=== PATIENT | male | born 1965 | race Caucasian/White ===

== ENCOUNTER → 2020-04-05 15:58 | Outpatient (BNVA) | payer OTHER, SELFPAY | PROVIDERS: Family Provider Nurse Practitioner Family; Visit Provider Nurse Practitioner Family | DX: S52.502A Unspecified fracture of the lower end of left radius, initial encounter for closed fracture (principal); X58.XXXA Exposure to other specified factors, initial encounter | CPT/HCPCS: 73110 ==

== ENCOUNTER → 2020-06-29 16:45 | Outpatient (BNVA) | payer OTHER, SELFPAY | PROVIDERS: Family Provider Nurse Practitioner Family; Visit Provider Nurse Practitioner Family | DX: J30.9 Allergic rhinitis, unspecified (principal); Z12.5 Encounter for screening for malignant neoplasm of prostate; Z13.6 Encounter for screening for cardiovascular disorders | CPT/HCPCS: 80053; 80061; 85025; G0103 ==

== ENCOUNTER → 2020-12-16 11:32 | Outpatient (BNVA) | payer OTHER, SELFPAY | PROVIDERS: Family Provider Nurse Practitioner Family; Visit Provider Nurse Practitioner Family | DX: R53.83 Other fatigue (principal) | CPT/HCPCS: 80053; 82306; 82607; 83735; 84403; 84443; 85025 ==

== ENCOUNTER → 2021-01-17 14:48 | Outpatient (BNVA) | payer OTHER, SELFPAY | PROVIDERS: Family Provider Nurse Practitioner Family; Visit Provider Nurse Practitioner Family | DX: R05 Cough (principal) | CPT/HCPCS: 71046 ==

== ENCOUNTER → 2021-10-20 09:27 | Outpatient (BNVA) | payer OTHER, SELFPAY | PROVIDERS: Family Provider Nurse Practitioner Family; Visit Provider Nurse Practitioner Family | DX: Z20.822 Contact with and (suspected) exposure to COVID-19 (principal) | CPT/HCPCS: 87635 ==

== ENCOUNTER → 2021-11-25 09:55 | Outpatient (BNVA) | payer OTHER, SELFPAY | PROVIDERS: Family Provider Nurse Practitioner Family; Visit Provider Nurse Practitioner Family | DX: L03.114 Cellulitis of left upper limb (principal) | CPT/HCPCS: 73130 ==

== ENCOUNTER → 2021-12-06 17:00 | Outpatient (BNVA) | payer OTHER, SELFPAY | PROVIDERS: Family Provider Nurse Practitioner Family; Visit Provider Nurse Practitioner Family | DX: M79.642 Pain in left hand (principal); L03.114 Cellulitis of left upper limb | CPT/HCPCS: 80053; 84550; 85025; 85651; 86038; 86140; 86200; 86431 ==

== ENCOUNTER 2021-12-19 12:21 | Outpatient (CLI) | payer OTHER, SELFPAY ==
--- NOTE | 2021-12-19 13:00 | MR_ITS ---
WS: [id number] INDICATION: Thorn hand for several months. Cellulitis. TECHNIQUE: MRI of the LEFT hand without gadolinium enhancement. Coronal T1, coronal STIR, axial T2, a xial T1, sagittal T2, coronal 3-D FSPGR. FINDINGS: Diffuse dorsal soft tissue edema overlying the head of the 3rd metacarpal with fluid in the 3rd MTP joint. Edema within the 3rd metatarsal head. Diffuse surrounding soft tissue and synovial th ickening. Small amount of fluid along the dorsum of the 3rd metatarsal head measuring 9 x 10 mm. This does not appear drainable. Recommend correlation for infection. Edema within the 3rd metacarpal head may be reactive but osteomyelitis not excluded. Moderate degenerative changes involving the carpal bones. Metatarsals are otherwise normal in appeara nce. MR/MR hand LT wo con* [id number] IMPRESSION: 1. Subcutaneous edema with diffuse soft tissue and synovial thickening deep to the palpable marker involving the 3rd metacarpal head. 2. Diffuse surrounding synovial thickening at the 3rd metacarpal head with flu id extending into the MTP joint. Edema within the 3rd metacarpal head may be re active but suspicious for osteomyelitis. 3. Small septated fluid collection deep to the palpable marker at the metacarp al head measuring 9 x 10 mm does not appear drainable. Recommend correlation fo r infection and septic joint. 4. No other significant findings.
== END 2021-12-19 12:22 | disposition home or self-care (01) ==
PROVIDERS: PCP Family Medicine; Visit Provider Nurse Practitioner Family
DX: L03.114 Cellulitis of left upper limb (principal); R60.0 Localized edema
CPT/HCPCS: 73218

== ENCOUNTER → 2022-08-07 15:37 | Outpatient (BNVA) | payer OTHER, SELFPAY | PROVIDERS: PCP Family Medicine; Visit Provider Nurse Practitioner Family | DX: R11.0 Nausea (principal); E78.2 Mixed hyperlipidemia; R53.83 Other fatigue; E55.9 Vitamin D deficiency, unspecified; R11.10 Vomiting, unspecified; M79.10 Myalgia, unspecified site; J02.9 Acute pharyngitis, unspecified; R51.9 Headache, unspecified; J40 Bronchitis, not specified as acute or chronic; Z12.5 Encounter for screening for malignant neoplasm of prostate | CPT/HCPCS: 80053; 80061; 82306; 83721; 84402; 84403; 84443; G0103 ==

== ENCOUNTER → 2023-04-16 09:41 | Outpatient (BNVA) | payer OTHER, SELFPAY | PROVIDERS: PCP Family Medicine; Visit Provider Nurse Practitioner Family | DX: E78.2 Mixed hyperlipidemia (principal); S61.442A Puncture wound with foreign body of left hand, initial encounter; W60.XXXA Contact with nonvenomous plant thorns and spines and sharp leaves, initial encounter | CPT/HCPCS: 73130; 80053; 80061 ==

== ENCOUNTER → 2023-07-05 15:52 | Outpatient (BNVA) | payer OTHER, SELFPAY | PROVIDERS: PCP Family Medicine; Visit Provider Nurse Practitioner Family | DX: F41.1 Generalized anxiety disorder (principal); F43.0 Acute stress reaction; E78.2 Mixed hyperlipidemia; N52.9 Male erectile dysfunction, unspecified; F32.4 Major depressive disorder, single episode, in partial remission | CPT/HCPCS: 80053; 80061; 83721; 84402; 84403 ==

== ENCOUNTER 2023-08-24 10:13 | Outpatient (CLI) | payer OTHER, SELFPAY ==
[2023-08-24 10:47] LABS: Basophils % 1.1 %; Eosinophils # 0.1 10^3/uL (0.0-0.8); Eosinophils % 2.2 %; Hematocrit 45.8 % (37-53); Lymphocytes % 26.6 %; Mean Corpuscular HGB Conc 33.2 g/dL (30-55); Mean Corpuscular Hemoglobin 30.6 pg (27-33); Mean Corpuscular Volume 92.3 fl (82-101); Monocytes # 0.3 10^3/uL (0.2-0.9); Monocytes % 8.8 %; Neutrophils # 2.21 10^3/uL (1.8-7.7); Neutrophils % 60.8 %; Nucleated Red Blood Cells % 0 %; Platelet Count 167 10^3/cmm (157-399); Red Blood Count 4.96 10^6/uL (3.85-5.65); Red Cell Distribution Width 12.6 % (12.1-15.1); White Blood Count 3.64 10^3/uL (3.29-11.43)
[2023-08-24 11:13] LABS: Alanine Aminotransferase 23 U/L (0-41); Albumin Level 4.7 g/dL (3.5-5.2); Alkaline Phosphatase 74 U/L (40-130); Anion Gap 16.2 (5-19); Aspartate Amino Transferase 17 U/L (0-40); Blood Urea Nitrogen 12 mg/dL (8-23); Calcium 9.5 mg/dL (8.5-10.5); Carbon Dioxide 25 mmol/L (22-29); Chloride 103 mmol/L (98-107); Free T4 Free Thyroxine 0.98 ng/dL (0.82-1.77); Globulin 2.6 g/dL (1.3-4.6); Glomerular Filtration Rate 137.4 mL/min (90-130); Glucose 102 mg/dL (65-115); Osmolality Calculated 290 mOsm/kg (285-295); Potassium 4.2 mmol/L (3.5-5.1); Prostate Specific Antigen Scr 1.31 ng/mL (0-4); Sodium 140 mmol/L (136-145); T3 Free 3.4 PG/ML (2.0-4.4); Thyroid Stimulating Hormone 1.49 uIU/mL (0.27-4.20); Total Bilirubin 0.6 mg/dL (0.15-1.2); Total Protein 7.3 g/dL (6.6-8.7)
[2023-08-25 09:04] LABS: T4 Total 6.9 mcg/dL (4.9-10.5)
[2023-08-25 12:25] LABS: Sex Hormone Binding Globulin 38 nmol/L (22-77); T3 Total 136 ng/dL (76-181)
[2023-08-27 08:53] LABS: Thyroid Peroxidase Antobodies <1 IU/mL (<9)
[2023-08-28 11:04] LABS: Insulin ( Reference Lab Test) 13.8 uIU/mL
[2023-08-28 14:34] LABS: IGF1 LC/MS 89 ng/mL (41-279); Z Score (Male) -0.8 SD (-2.0 - +2.0)
[2023-08-31 18:51] LABS: Cortisol ,Free,LC/MS, S 0.51 mcg/dL
[2023-09-02 03:39] LABS: T3 Reverse LC/MS/MS 16 ng/dL (8-25)
[2023-09-02 07:45] LABS: Thyroglobulin Level 32.9 ng/mL
== END 2023-08-24 10:14 | disposition home or self-care (01) ==
LOC: LAB 10:14
PROVIDERS: PCP Nurse Practitioner Family; Visit Provider Nurse Practitioner Family
DX: N52.9 Male erectile dysfunction, unspecified (principal); R68.82 Decreased libido; F32.4 Major depressive disorder, single episode, in partial remission; Z13.29 Encounter for screening for other suspected endocrine disorder; Z12.5 Encounter for screening for malignant neoplasm of prostate; F41.1 Generalized anxiety disorder; F43.0 Acute stress reaction
CPT/HCPCS: 36415; 80053; 82530; 82670; 83525; 84270; 84305; 84432; 84436; 84439; 84443; 84480; 84481; 84482; 85025; 86376; 86800; G0103

== ENCOUNTER → 2023-09-17 09:54 | Outpatient (BNVA) | payer OTHER, SELFPAY | PROVIDERS: PCP Nurse Practitioner Family; Visit Provider Nurse Practitioner Family | DX: J32.0 Chronic maxillary sinusitis (principal); J01.00 Acute maxillary sinusitis, unspecified | CPT/HCPCS: 87486; 87581; 87633 ==

== ENCOUNTER 2023-10-04 13:15 | Emergency (ER) | payer OTHER, SELFPAY ==
--- NOTE | 2023-10-04 13:17 | XRR_ITS ---
PROCEDURE INFORMATION: Exam: XR Chest Exam date and time: 10/04/2023 3:04 PM Age: 58 years old Clinical indication: Cough TECHNIQUE: Imaging protocol: Radiologic exam of the chest. Views: 1 view. COMPARISON: CR XR chest 2V* [id number] 01/17/2021 2:52 PM FINDINGS: Lungs: Unremarkable. No consolidation. Pleural spaces: Unremarkable. No pleural effusion. No pneumothorax. Heart/Mediastinum: Unremarkable. No cardiomegaly. Bones/joints: Unremarkable. XR/XR chest 1V portable [id number] IMPRESSION: No acute findings.
[2023-10-04 14:07] VITALS: BP 124/84; PULSE 86; TEMP 36.6; O2SAT 96; BMI 29.6
--- NOTE | 2023-10-04 14:11 | ECG_ITS ---
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 Measurements Intervals [place] Rate: 89 P: 59 NE: 154 QRS: 52 QRSD: 88 T: 30 QT: 295 QTc: 359 Interpretive Statements SINUS RHYTHM POSSIBLE LEFT ATRIAL ENLARGEMENT [-0.1mV P-WAVE IN V1/V2] NONSPECIFIC T-WAVE ABNORMALITY No previous ECG available for comparison Electronically Signed On 10-04-2023 15:11:57 CAMERA PERSON by Joshua Wyatt M.D. [id number]
--- NOTE | 2023-10-04 15:29 | ED_ITS ---
HPI - SOB/Dyspnea 2 General: Chief Complaint: Shortness of Breath/Dyspnea Stated Complaint: sent from annalise navarro cough Time Seen by Provider: 10/04/23 15:25 History of Present Illness: HPI Narrative: 58-year-old male patient comes in today for persistent cough after COVID. Patient has been treated with cephalexin and then followed by a round of Levaquin with 20 mg of prednisone daily. Patient reports minimal to no improvement with medications. Patient does have an occasional cough. Patient appears nontoxic. Patient appears in no acute distress. Review of Systems 2 General: Reports: 10 or more systems reviewed and unremarkable except in HPI and below Resp: Reports: dyspnea and non-productive cough PFSH ED 2 PFSH: Medical History (Updated 10/04/23 @ 16:56 by NINA Mcfarlane) GERD (gastroesophageal reflux disease) Surgical History Hx of tonsillectomy Family History Other No pertinent family history Social History Smoking and tobacco/nicotine status: current every day tobacco/nicotine user smokeless tobacco Smokeless tobacco user: chewing tobacco Second hand smoke exposure: No Alcohol intake: never Substance/Drug Use: never Lives independently: Yes Marital status: service: No Current occupational status: employed Current gender identity: Male Special nikolay needs: No Agree to transfusion: Yes Physical Exam 2 Const: COMMON NORMALS: alert HENMT: COMMON NORMALS: normocephalic HEAD & SCALP: normocephalic Neck/C-Spine: COMMON NORMALS: no meningeal signs Resp: COMMON NORMALS: normal respiratory effort AUSCULTATION: wheezes Cardio: COMMON NORMALS: regular rate and regular rhythm RATE: regular rate RHYTHM: regular rhythm GI: COMMON NORMALS: Soft to palpation and non-tender PALPATION: Yes Soft to palpation Back/Pelvis: COMMON NORMALS: thoracic and lumbar spine normal to inspection Extremity: COMMON NORMALS: no pedal edema Neuro: SENSORIUM/ORIENTATION: Yes alert MENINGEAL SIGNS: Yes no meningeal signs Skin: COMMON NORMALS: turgor normal GENERAL SKIN EXAM: turgor normal Course 2 Vital Signs: Vital signs: Vital Signs Temperature 97.8 F 10/04/23 14:07 Pulse Rate 85 10/04/23 16:33 Respiratory Rate 18 10/04/23 16:31 Blood Pressure 123/81 10/04/23 15:35 Pulse Oximetry 95 10/04/23 16:31 Oxygen Delivery Me thod Room Air 10/04/23 16:31 MDM - SOB/Dyspnea Medical Decision Making Patient comes in today for persistent cough after COVID infection. Patient has been treated with cephalexin followed by a round of Levaquin and prednisone. Patient continues to have a persistent cough. On exam patient appears nontoxic. Patient speaks full sentences. Lungs have some inspiratory wheezes. Good air movement. Patient does have occasional cough. Differential diagnosis includes but not limited to asthma, COPD, postviral cough, pneumonia. Chest x-ray was normal. Believe the patient most likely has a postviral cough versus a reactive airway disease. Will start patient on steroids and albuterol inhaler. Patient recommended to follow-up with primary care for further instructions. Patient did request ivermectin or hydroxychloroquine because he believes that that would fix him up. I told him that the data does not support his claims and it would not be appropriate to prescribe for him. Patient stated understanding. Lab Data 10/04/23 15:30 10/04/23 15:30 Labs/Radiology: Radiology Impressions Chest X-Ray 10/04/23 13:17 IMPRESSION: No acute findings. Laboratory Results WBC 6.39 10^3/uL (3.29-11.43) 10/04/23 15:30 RBC 5.40 10^6/uL (3.85-5.65) 10/04/23 15:30 Hgb 16.90 g/dL (11.27-16.99) 10/04/23 15:30 Hct 51.5 % (37-53) 10/04/23 15:30 MCV 95.4 fl (82-101) 10/04/23 15:30 MCH 31.3 pg (27-33) 10/04/23 15:30 MCHC 32.8 g/dL (30-55) 10/04/23 15:30 RDW 14.0 % (12.1-15.1) 10/04/23 15:30 Plt Count 169 10^3/cmm (157-399) 10/04/23 15:30 MPV 11.3 fL (7.4-10.4) H 10/04/23 15:30 Neut % (Auto) 63.4 % 10/04/23 15:30 Lymph % (Auto) 20.2 % 10/04/23 15:30 [place] % (Auto) 13.5 % 10/04/23 15:30 Eos % (Auto) 1.7 % 10/04/23 15:30 Baso % (Auto) 0.6 % 10/04/23 15:30 Neut # (Auto) 4.05 10^3/uL (1.8-7.7) 10/04/23 15:30 Lymph # (Auto) 1.3 10^3/uL (0.8-4.8) 10/04/23 15:30 [place] # (Auto) 0.9 10^3/uL (0.2-0.9) 10/04/23 15:30 Eos # (Auto) 0.1 10^3/uL (0.0-0.8) 10/04/23 15:30 Baso # (Auto) 0.0 10^3/uL (0.0-0.1) 10/04/23 15:30 Nucleated RBC % (auto) 0 % 10/04/23 15:30 Nucleated RBCs # 0.0 /100WBC 10/04/23 15:30 Sodium 139 mmol/L (136-145) 10/04/23 15:30 Potassium 4.2 mmol/L (3.5-5.1) 10/04/23 15:30 Chloride 102 mmol/L (98-107) 10/04/23 15:30 Carbon Dioxide 24 mmol/L (22-29) 10/04/23 15:30 Anion Gap 17.2 (5-19) 10/04/23 15:30 BUN 11 mg/dL (8-23) 10/04/23 15:30 Creatinine 0.9 mg/dL (0.7-1.2) 10/04/23 15:30 GFR Calculation 86.1 mL/min (90-130) L 10/04/23 15:30 Glucose 76 mg/dL (65-115) 10/04/23 15:30 Calculated Osmolality 286 mOsm/kg (285-295) 10/04/23 15:30 Calcium 9.2 mg/dL (8.5-10.5) 10/04/23 15:30 Total Bilirubin 0.5 mg/dL (0.15-1.2) 10/04/23 15:30 AST 26 U/L (0-40) 10/04/23 15:30 ALT 45 U/L (0-41) H 10/04/23 15:30 Alkaline Phosphatase 56 U/L (40-130) 10/04/23 15:30 Total Protein 7.3 g/dL (6.6-8.7) 10/04/23 15:30 Albumin 4.5 g/dL (3.5-5.2) 10/04/23 15:30 Globulin 2.8 g/dL (1.3-4.6) 10/04/23 15:30 Influenza Type A Ag negative (Negative) 10/04/23 15:36 Influenza Type B Ag negative (Negative) 10/04/23 15:36 All radiology interpretation(s) finalized by discharge Discharge Plan Discharge Patient Disposition: Home Clinical Impression: Postviral syndrome Reactive airway disease with wheezing Qualifiers: Asthma severity: mild Asthma persistence: intermittent Asthma complication type: with acute exacerbation Qualified Code(s): J45.21 - Mild intermittent asthma with (acute) exacerbation Condition: Stable Prescriptions: New albuterol sulfate 90 mcg/actuation HFA aerosol inhaler 2 inh inhalation Q4H PRN (Reason: shortness of breath or wheezing or cough) Qty: 16 0RF prednisone 20 mg tablet 20 mg PO BID 7 Days Qty: 14 0RF No Action cetirizine [Zyrtec] 10 mg tablet 10 mg PO DAILY PRN (Reason: allergy symptoms) Qty: 30 11RF bupropion HCl [Wellbutrin SR] 150 mg tablet sustained-release 12 hr 150 mg PO BID 30 Days Qty: 60 0RF tadalafil [Cialis] 10 mg tablet 10 mg PO DAILY PRN (Reason: sexual activity) Qty: 30 0RF Rx Instructions: take approx 30min before sexual activity; do not use more than 1 dose per 24hrs levofloxacin 500 mg tablet 500 mg PO DAILY 7 Days Qty: 7 0RF prednisone 20 mg tablet 20 mg PO DAILY 5 Days Qty: 5 0RF promethazine-DM 6.25-15 mg/5 mL syrup 5 - 10 ml PO Q6H PRN (Reason: cough) Qty: 200 0RF simvastatin 20 mg tablet 20 mg PO .qhs 90 Days Qty: 90 1RF Discharge Orders: Discharge ED (Routine); Ordered 10/04/23 Ordered By: Jose Juan Pak Referrals: Estella Roblero NETWORK PROJECT MANAGER [Primary Care Provider] - Discharge Diet: Usual diet Discharge Activity: Increase activity as tolerated Patient Instructions: Reactive Airways Disease (ED) Activity Restrictions/Additional Instructions: Drink plenty water and fluids. Take prednisone 20 mg 2 times daily for the next 7 days. Use albuterol 2 puffs every 4 hours as needed for shortness of breath or wheezing. If you have never had a inhaler before have the pharmacist demonstrated for you. Return to ED for new concerns. Return to ED for worsening symptoms such as high fever, severe chest pain, inability to hold fluids down, or increasing shortness of breath. Coding Level of Care Code ED Rug Layer for Tim Jones
[2023-10-04 15:35] VITALS: BP 123/81; PULSE 80; RESP 16; O2SAT 95
[2023-10-04] MEDS: dexamethasone 10 mg/mL INJ IVP (15:46)
[2023-10-04 16:14] LABS: Basophils % 0.6 %; Eosinophils # 0.1 10^3/uL (0.0-0.8); Eosinophils % 1.7 %; Hematocrit 51.5 % (37-53); Lymphocytes # 1.3 10^3/uL (0.8-4.8); Lymphocytes % 20.2 %; Mean Corpuscular HGB Conc 32.8 g/dL (30-55); Mean Corpuscular Hemoglobin 31.3 pg (27-33); Mean Corpuscular Volume 95.4 fl (82-101); Mean Platelet Volume 11.3 fL (7.4-10.4); Monocytes # 0.9 10^3/uL (0.2-0.9); Monocytes % 13.5 %; Neutrophils # 4.05 10^3/uL (1.8-7.7); Neutrophils % 63.4 %; Nucleated Red Blood Cells % 0 %; Platelet Count 169 10^3/cmm (157-399); White Blood Count 6.39 10^3/uL (3.29-11.43)
[2023-10-04 16:19] LABS: Influenza A by IFA negative (Negative); Influenza B by IFA negative (Negative)
[2023-10-04 16:24] LABS: Alanine Aminotransferase 45 U/L (0-41); Albumin Level 4.5 g/dL (3.5-5.2); Alkaline Phosphatase 56 U/L (40-130); Anion Gap 17.2 (5-19); Aspartate Amino Transferase 26 U/L (0-40); Blood Urea Nitrogen 11 mg/dL (8-23); Calcium 9.2 mg/dL (8.5-10.5); Carbon Dioxide 24 mmol/L (22-29); Chloride 102 mmol/L (98-107); Globulin 2.8 g/dL (1.3-4.6); Glomerular Filtration Rate 86.1 mL/min (90-130); Glucose 76 mg/dL (65-115); Osmolality Calculated 286 mOsm/kg (285-295); Potassium 4.2 mmol/L (3.5-5.1); Sodium 139 mmol/L (136-145); Total Bilirubin 0.5 mg/dL (0.15-1.2); Total Protein 7.3 g/dL (6.6-8.7)
[2023-10-04] MEDS: ipratropium-albuterol 3 mL Neb INHALATION (16:28)
[2023-10-04 16:31] VITALS: PULSE 81; RESP 18; O2SAT 95
[2023-10-04 16:33] VITALS: PULSE 85
[2023-10-04 17:06] VITALS: BP 123/65; PULSE 88; O2SAT 93
[2023-10-04 18:34] LABS: SARS Covid-2 Antigen negative (Negative)
== END 2023-10-04 17:08 | disposition home or self-care (01) ==
PROVIDERS: Emergency Medicine; Emergency Provider Nurse Practitioner Family; PCP Nurse Practitioner Family
DX: J45.21 Mild intermittent asthma with (acute) exacerbation (principal); G93.31 Postviral fatigue syndrome; F17.220 Nicotine dependence, chewing tobacco, uncomplicated; Z11.52 Encounter for screening for COVID-19
CPT/HCPCS: 71045; 80053; 85025; 87426; 87804; 93005; 94640; 96374; 99285; J1100

== ENCOUNTER 2023-10-08 13:39 | Emergency (ER) | payer OTHER, SELFPAY ==
[2023-10-08 13:48] VITALS: BP 152/94; PULSE 94; RESP 18; TEMP 36.7; O2SAT 97; BMI 31.9
--- NOTE | 2023-10-08 15:07 | ECG_ITS ---
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 Measurements Intervals [place] Rate: 85 P: 59 NC: 157 QRS: 47 QRSD: 90 T: -7 QT: 297 QTc: 353 Interpretive Statements SINUS RHYTHM NONSPECIFIC T-WAVE ABNORMALITY Compared to ECG 10/04/2023 14:14:29 No significant changes Electronically Signed On 10-08-2023 15:19:44 SEWING SUPERVISOR by Joshua Wyatt M.D. [email or web address] general [email or web address] Belt [email or web address] medical specialty hospital - [email or web address]/[id number]
[2023-10-08 15:08] VITALS: BP 163/104; PULSE 89; RESP 17; O2SAT 96
--- NOTE | 2023-10-08 15:08 | ED_ITS ---
HPI - SOB/Dyspnea 2 General: Chief Complaint: Shortness of Breath/Dyspnea Stated Complaint: sob, sweats, d,n Time Seen by Provider: 10/08/23 15:02 Source: patient Mode of arrival: ambulatory History of Present Illness: HPI Narrative: 58-year-old male presents emergency room he was about 5 to 6 weeks post-COVID infection he was seen couple days ago complaining of shortness of breath generalized weakness sinus drainage evaluation at that time was negative including a chest x-ray he denies any chest pain no fever sweats or chills he still short of breath with activity. No vomiting no diarrhea. No swelling in the extremities. Denies chest pain no dysuria urgency or frequency. MD elicited complaint: shortness of breath and cough Onset (ago): day(s) Context: recent illness Timing: constant Severity: mild Exacerbating factors: exertion Associated symptoms: Deny abdominal pain, chest congestion, chest pain, cough, diaphoresis, dizziness, extremity pain, fever(s), hemoptysis, lightheadedness, myalgias, nausea, orthopnea, palpitations, paresthesias, polydipsia, polyuria, rash, sense of impending doom, syncope or vomiting Review of Systems 2 Const: Denies: fever(s), chills or diaphoresis Card: Denies: chest pain, palpitations, lightheadedness, syncope or orthopnea Resp: Denies: dyspnea, hemoptysis or chest congestion GI: Denies: abdominal pain, nausea or vomiting : Denies: dysuria, urinary frequency or urinary urgency Musc: Denies: neck pain, back pain or extremity pain Skin/Breast: Denies: rash Neuro: Denies: dizziness Endo: Denies: polyuria or polydipsia PFSH ED 2 PFSH: Medical History (Updated 10/08/23 @ 16:41 by Bethel Campoverde DO) GERD (gastroesophageal reflux disease) Surgical History Hx of tonsillectomy Family History Other No pertinent family history Social History Smoking and tobacco/nicotine status: current every day tobacco/nicotine user smokeless tobacco Smokeless tobacco user: chewing tobacco Second hand smoke exposure: No Alcohol intake: never Substance/Drug Use: never Lives independently: Yes Marital status: service: No Current occupational status: employed Current gender identity: Male Special nikolay needs: No Agree to transfusion: Yes Physical Exam 2 Const: COMMON NORMALS: no acute distress GENERAL APPEARANCE: cooperative and comfortable ORIENTATION/CONSCIOUSNESS: Yes awake, Yes oriented to person, Yes oriented to place and Yes oriented to time HENMT: COMMON NORMALS: normocephalic, atraumatic and hearing grossly normal bilaterally HEAD & SCALP: normocephalic and atraumatic Resp: COMMON NORMALS: normal respiratory effort, No retractions, No use of accessory muscles and clear to auscultation bilaterally AUSCULTATION: clear to auscultation bilaterally Cardio: COMMON NORMALS: regular rate, regular rhythm and No murmurs present (Cardio) RATE: regular rate RHYTHM: regular rhythm GI: COMMON NORMALS: Soft to palpation and No hepatosplenomegaly present A USCULTATION: Yes normoactive bowel sounds PALPATION: Yes Soft to palpation, No Tenderness to palpation present (GI), No Guarding due to palpation present (GI) and Yes No hepatosplenomegaly present Extremity: COMMON NORMALS: normal to inspection, capillary refill normal, no clubbing, cyanosis or edema, no calf tenderness and no pedal edema Neuro: SENSORIUM/ORIENTATION: Yes oriented to person, Yes oriented to place and Yes oriented to time Skin: COMMON NORMALS: no rashes or lesions noted GENERAL SKIN EXAM: no rashes or lesions noted Course 2 Vital Signs: Vital signs: Vital Signs Temperature 98.1 F 10/08/23 13:48 Pulse Rate 68 10/08/23 16:43 Respiratory Rate 18 10/08/23 16:43 Blood Pressure 138/99 10/08/23 16:43 Pulse Oximetry 98 10/08/23 16:43 Oxygen Delivery Me thod Room Air 10/08/23 16:13 MDM - SOB/Dyspnea Medical Decision Making Labs and imaging reviewed. Patient is not hypoxic D-dimer is negative do not believe he has a PE at this time. Think most of his symptoms are sequela of his COVID but he does not have any acute process at this time. Will discharge patient home discussed findings with him follow-up with primary care Medical Records I reviewed the patient's medical records. Lab Data I reviewed the patient's lab results. 10/08/23 15:22 10/08/23 15:22 Labs/Radiology: Laboratory Results WBC 11.27 10^3/uL (3.29-11.43) 10/08/23 15:22 RBC 5.11 10^6/uL (3.85-5.65) 10/08/23 15:22 Hgb 15.70 g/dL (11.27-16.99) 10/08/23 15:22 Hct 47.9 % (37-53) 10/08/23 15:22 MCV 93.7 fl (82-101) 10/08/23 15:22 MCH 30.7 pg (27-33) 10/08/23 15:22 MCHC 32.8 g/dL (30-55) 10/08/23 15:22 RDW 14.3 % (12.1-15.1) 10/08/23 15:22 Plt Count 157 10^3/cmm (157-399) 10/08/23 15:22 MPV 11.0 fL (7.4-10.4) H 10/08/23 15:22 Neut % (Auto) 72.3 % 10/08/23 15:22 Lymph % (Auto) 16.1 % 10/08/23 15:22 [place] % (Auto) 9.7 % 10/08/23 15:22 Eos % (Auto) 0.3 % 10/08/23 15:22 Baso % (Auto) 0.4 % 10/08/23 15:22 Neut # (Auto) 8.16 10^3/uL (1.8-7.7) H 10/08/23 15:22 Lymph # (Auto) 1.8 10^3/uL (0.8-4.8) 10/08/23 15:22 [place] # (Auto) 1.1 10^3/uL (0.2-0.9) H 10/08/23 15:22 Eos # (Auto) 0.0 10^3/uL (0.0-0.8) 10/08/23 15:22 Baso # (Auto) 0.1 10^3/uL (0.0-0.1) 10/08/23 15:22 Nucleated RBC % (auto) 0 % 10/08/23 15:22 Nucleated RBCs # 0.0 /100WBC 10/08/23 15:22 D-Dimer 0.54 ug/mLFEU (0-0.59) 10/08/23 15:22 Specimen Type Arterial 10/08/23 15:31 Sample Site Radial, left 10/08/23 15:31 ABG pH 7.46 (7.35-7.45) H 10/08/23 15:31 ABG pCO2 44.7 mmHg (35-45) 10/08/23 15:31 ABG pO2 68.7 mmHg (80.0-100.0) L 10/08/23 15:31 ABG PO2/FiO2 Ratio 0 10/08/23 15:31 ABG HCO3 31.9 mmol/L (22-26) H 10/08/23 15:31 ABG O2 Saturation 94.8 10/08/23 15:31 ABG Base Excess 7.0 mmol/L (-2.0-2.0) H 10/08/23 15:31 Jeffrey Test Pos 10/08/23 15:31 A-a O2 Gradient 3.6 mmHg (5-10) L 10/08/23 15:31 Hematocrit 48.8 % (42-52) 10/08/23 15:31 Hgb O2 Saturation 93.7 % (95-100) L 10/08/23 15:31 Carboxyhemoglobin 0.7 %THgb (0.4-20.1) 10/08/23 15:31 Methemoglobin 0.4 % (0.4-1.5) 10/08/23 15:31 Total Hemoglobin 15.9 g/dL (14-18) 10/08/23 15:31 Sodium 143.0 mmol/L (131-143) 10/08/23 15:31 Potassium 3.8 mmol/L (3.5-5.0) 10/08/23 15:31 Glucose 78.0 mg/dL (70-115) 10/08/23 15:31 Ionized Calcium 1.2 mmol/L (1.1-1.4) 10/08/23 15:31 O2 Delivery Device Room air 10/08/23 15:31 FiO2 21.0 % 10/08/23 15:31 Nursery School Attendant ID glc 10/08/23 15:31 Sodium 142 mmol/L (136-145) 10/08/23 15:22 Potassium 3.9 mmol/L (3.5-5.1) 10/08/23 15:22 Chloride 103 mmol/L (98-107) 10/08/23 15:22 Carbon Dioxide 29 mmol/L (22-29) 10/08/23 15:22 Anion Gap 13.9 (5-19) 10/08/23 15:22 BUN 14 mg/dL (8-23) 10/08/23 15:22 Creatinine 0.8 mg/dL (0.7-1.2) 10/08/23 15:22 GFR Calculation 98.6 mL/min (90-130) 10/08/23 15:22 Glucose 84 mg/dL (65-115) 10/08/23 15:22 Calculated Osmolality 294 mOsm/kg (285-295) 10/08/23 15:22 Calcium 9.4 mg/dL (8.5-10.5) 10/08/23 15:22 Total Bilirubin 0.3 mg/dL (0.15-1.2) 10/08/23 15:22 AST 20 U/L (0-40) 10/08/23 15:22 ALT 45 U/L (0-41) H 10/08/23 15:22 Alkaline Phosphatase 55 U/L (40-130) 10/08/23 15:22 Troponin T Baseline 22 ng/L (0-15) H 10/08/23 15:22 Total Protein 6.5 g/dL (6.6-8.7) L 10/08/23 15:22 Albumin 4.0 g/dL (3.5-5.2) 10/08/23 15:22 Globulin 2.5 g/dL (1.3-4.6) 10/08/23 15:22 XR interpretation done by ED provider, pending radiology final review Discharge Plan Discharge Patient Disposition: Home Clinical Impression: COVID-19 geno magallon Condition: Stable Prescriptions: No Action cetirizine [Zyrtec] 10 mg tablet 10 mg PO DAILY PRN (Reason: allergy symptoms) Qty: 30 11RF bupropion HCl [Wellbutrin SR] 150 mg tablet sustained-release 12 hr 150 mg PO BID 30 Days Qty: 60 0RF tadalafil [Cialis] 10 mg tablet 10 mg PO DAILY PRN (Reason: sexual activity) Qty: 30 0RF Rx Instructions: take approx 30min before sexual activity; do not use more than 1 dose per 24hrs levofloxacin 500 mg tablet 500 mg PO DAILY 7 Days Qty: 7 0RF prednisone 20 mg tablet 20 mg PO DAILY 5 Days Qty: 5 0RF promethazine-DM 6.25-15 mg/5 mL syrup 5 - 10 ml PO Q6H PRN (Reason: cough) Qty: 200 0RF simvastatin 20 mg tablet 20 mg PO .qhs 90 Days Qty: 90 1RF albuterol sulfate 90 mcg/actuation HFA aerosol inhaler 2 inh inhalation Q4H PRN (Reason: shortness of breath or wheezing or cough) Qty: 16 0RF prednisone 20 mg tablet 20 mg PO BID 7 Days Qty: 14 0RF Discharge Orders: Discharge ED (Routine); Ordered 10/08/23 Ordered By: Bethel Campoverde Referrals: Estella Roblero NP [Primary Care Provider] - Discharge Diet: Usual diet Discharge Activity: Increase activity as tolerated Patient Instructions: Opioid Safety, Pain Management Activity Restrictions/Additional Instructions: Thank you for choosing [facility] for your healthcare needs today. Please realize this is an emergency room and that we are providing you with a medical screening exam and this may not be complete and all inclusive of all the testing and or work up that you may need to determine your ailment or severity of your illness. It is very important that you follow up as instructed or that you return to the Emergency Department should you have concerns or if your condition changes or worsens in any way. Coding Level of Care Code ED Net Developer Consultant for Tim Jones
[2023-10-08 15:30] LABS: Basophils # 0.1 10^3/uL (0.0-0.1); Basophils % 0.4 %; Eosinophils % 0.3 %; Hematocrit 47.9 % (37-53); Lymphocytes # 1.8 10^3/uL (0.8-4.8); Lymphocytes % 16.1 %; Mean Corpuscular HGB Conc 32.8 g/dL (30-55); Mean Corpuscular Hemoglobin 30.7 pg (27-33); Mean Corpuscular Volume 93.7 fl (82-101); Monocytes # 1.1 10^3/uL (0.2-0.9); Monocytes % 9.7 %; Neutrophils # 8.16 10^3/uL (1.8-7.7); Neutrophils % 72.3 %; Nucleated Red Blood Cells % 0 %; Platelet Count 157 10^3/cmm (157-399); Red Blood Count 5.11 10^6/uL (3.85-5.65); Red Cell Distribution Width 14.3 % (12.1-15.1); White Blood Count 11.27 10^3/uL (3.29-11.43)
[2023-10-08 15:40] LABS: ABG PCO2 44.7 mmHg (35-45); ABG PH Result 7.46 (7.35-7.45); Alveolar-Arterial Oxygen Gradi 3.6 mmHg (5-10); Arterial Blood Gas Hematocrit 48.8 % (42-52); Blood Gas Allen Test Pos; Blood Gas Operator Identificat glc; Blood Gas Sample Site Radial, left; Blood Gas Sample Type Arterial; Carboxyhemoglobin 0.7 %THgb (0.4-20.1); HCO3 ABG 31.9 mmol/L (22-26); HGB O2 Sat 93.7 % (95-100); Ionized Calcium Level - ABG 1.2 mmol/L (1.1-1.4); Methemoglobin 0.4 % (0.4-1.5); Oxygen Device ROOM AIR; Oxygen Saturation ABG 94.8; PO2 ABG 68.7 mmHg (80.0-100.0); PO2 FiO2 Ratio Arterial Blood 0; Potassium Level - ABG 3.8 mmol/L (3.5-5.0); Total Hemoglobin 15.9 g/dL (14-18)
[2023-10-08 15:42] LABS: D Dimer 0.54 ug/mLFEU (0-0.59)
[2023-10-08 15:48] LABS: Troponin(5th) Baseline 22 ng/L (0-15)
[2023-10-08 15:58] LABS: Alanine Aminotransferase 45 U/L (0-41); Alkaline Phosphatase 55 U/L (40-130); Anion Gap 13.9 (5-19); Aspartate Amino Transferase 20 U/L (0-40); Blood Urea Nitrogen 14 mg/dL (8-23); Calcium 9.4 mg/dL (8.5-10.5); Carbon Dioxide 29 mmol/L (22-29); Chloride 103 mmol/L (98-107); Globulin 2.5 g/dL (1.3-4.6); Glomerular Filtration Rate 98.6 mL/min (90-130); Glucose 84 mg/dL (65-115); Osmolality Calculated 294 mOsm/kg (285-295); Potassium 3.9 mmol/L (3.5-5.1); Sodium 142 mmol/L (136-145); Total Bilirubin 0.3 mg/dL (0.15-1.2); Total Protein 6.5 g/dL (6.6-8.7)
[2023-10-08 16:13] VITALS: BP 133/81; PULSE 86; RESP 17; O2SAT 97
--- NOTE | 2023-10-08 16:29 | XRR_ITS ---
PROCEDURE INFORMATION: Exam: XR Chest Exam date and time: 10/08/2023 4:31 PM Age: 58 years old Clinical indication: Cough and shortness of breath; Additional info: Dyspnea/cough TECHNIQUE: Imaging protocol: Radiologic exam of the chest. Views: 1 view. COMPARISON: CR XR chest 1V portable [id number] 10/04/2023 3:04 PM FINDINGS: Lungs: Poor inspiration. No consolidation. Pleural spaces: Unremarkable. No pleural effusion. No pneumothorax. Heart/Mediastinum: Unremarkable. No cardiomegaly. Bones/joints: Unremarkable. XR/XR chest 1V portable [id number] IMPRESSION: No acute findings.
[2023-10-08 16:43] VITALS: BP 138/99; PULSE 68; RESP 18; O2SAT 98
== END 2023-10-08 16:46 | disposition home or self-care (01) ==
PROVIDERS: Emergency Provider Family Medicine; PCP Nurse Practitioner Family
DX: U09.9 Post COVID-19 condition, unspecified (principal); F17.220 Nicotine dependence, chewing tobacco, uncomplicated
CPT/HCPCS: 36415; 36600; 71045; 80051; 80053; 82330; 82805; 84484; 85025; 85378; 93005; 99285

== ENCOUNTER 2023-11-13 11:27 | Outpatient (CLI) | payer OTHER, SELFPAY ==
[2023-11-13 12:39] LABS: Basophils % 0.7 %; Eosinophils % 0.9 %; Lymphocytes # 0.9 10^3/uL (0.8-4.8); Lymphocytes % 19.9 %; Mean Corpuscular HGB Conc 33.3 g/dL (30-55); Mean Corpuscular Hemoglobin 30.5 pg (27-33); Mean Corpuscular Volume 91.8 fl (82-101); Mean Platelet Volume 11.9 fL (7.4-10.4); Monocytes # 0.4 10^3/uL (0.2-0.9); Monocytes % 9.3 %; Neutrophils # 3.11 10^3/uL (1.8-7.7); Neutrophils % 68.8 %; Nucleated Red Blood Cells % 0 %; Platelet Count 155 10^3/cmm (157-399); Red Blood Count 5.34 10^6/uL (3.85-5.65); Red Cell Distribution Width 13.2 % (12.1-15.1); White Blood Count 4.52 10^3/uL (3.29-11.43)
[2023-11-13 13:10] LABS: Alanine Aminotransferase 29 U/L (0-41); Albumin Level 4.4 g/dL (3.5-5.2); Alkaline Phosphatase 57 U/L (40-130); Anion Gap 15.8 (5-19); Aspartate Amino Transferase 22 U/L (0-40); Blood Urea Nitrogen 9 mg/dL (8-23); Calcium 9.5 mg/dL (8.5-10.5); Carbon Dioxide 26 mmol/L (22-29); Chloride 100 mmol/L (98-107); Chol HDL Ratio 4.79 mg/dL (1.0-5.00); Cholesterol 134 mg/dL (0-200); Globulin 2.7 g/dL (1.3-4.6); Glomerular Filtration Rate 86.1 mL/min (90-130); Glucose 90 mg/dL (65-115); HDL Cholesterol 28 mg/dL (60-100); LDL Cholesterol Calculated 82 mg/dL (50-129); LDL HDL Ratio 2.93 RATIO (0.00-3.22); Osmolality Calculated 284 mOsm/kg (285-295); Potassium 3.8 mmol/L (3.5-5.1); Sodium 138 mmol/L (136-145); Total Bilirubin 0.5 mg/dL (0.15-1.2); Total Protein 7.1 g/dL (6.6-8.7); Triglycerides 122 mg/dL (0-150)
[2023-11-13 14:20] LABS: Estradiol 27.2 pg/mL (7.63-42.6); Follicle Stimulating Hormone 0.3 mIU/mL (1.5-12.4); Luteinizing Hormone 0.5 mIU/mL (1.7-8.6)
[2023-11-13 15:17] LABS: Testosterone Total > 1500.0 ng/dL (193-740)
[2023-11-14 14:25] LABS: Insulin ( Reference Lab Test) 12.5 uIU/mL
[2023-11-15 00:58] LABS: Sex Hormone Binding Globulin 24 nmol/L (22-77)
[2023-11-16 11:39] LABS: Testosterone, Free 539.1 pg/mL (46.0-224.0)
[2023-11-21 13:24] LABS: IGF1 LC/MS 151 ng/mL (41-279); Z Score (Male) 0.3 SD (-2.0 - +2.0)
== END 2023-11-13 11:28 | disposition home or self-care (01) ==
PROVIDERS: PCP Nurse Practitioner Family; Visit Provider Family Medicine
DX: R25.2 Cramp and spasm (principal); E78.5 Hyperlipidemia, unspecified; E23.6 Other disorders of pituitary gland; E11.65 Type 2 diabetes mellitus with hyperglycemia; E34.9 Endocrine disorder, unspecified; E56.9 Vitamin deficiency, unspecified; R63.8 Other symptoms and signs concerning food and fluid intake; J30.2 Other seasonal allergic rhinitis; R63.4 Abnormal weight loss; R74.8 Abnormal levels of other serum enzymes; R94.4 Abnormal results of kidney function studies; B95.1 Streptococcus, group B, as the cause of diseases classified elsewhere; E78.2 Mixed hyperlipidemia; R68.2 Dry mouth, unspecified; R03.0 Elevated blood-pressure reading, without diagnosis of hypertension; R63.5 Abnormal weight gain; E72.29 Other disorders of urea cycle metabolism; R68.81 Early satiety; Z11.59 Encounter for screening for other viral diseases
CPT/HCPCS: 36415; 80053; 80061; 82670; 83001; 83002; 83525; 84270; 84305; 84402; 84403; 85025

== ENCOUNTER 2023-11-14 16:11 | Outpatient (CLI) | payer OTHER, SELFPAY ==
--- NOTE | 2023-11-14 17:00 | CTR_ITS ---
PROCEDURE INFORMATION: Exam: CT Chest With Contrast; Diagnostic Exam date and time: 11/14/2023 4:49 PM Age: 58 years old Clinical indication: Cough and shortness of breath; Additional info: Continued cough shortness of breath weakness TECHNIQUE: Imaging protocol: Diagnostic computed tomography of the chest with contrast. Radiation optimization: All CT scans at this facility use at least one of these dose optimization techniques: automated exposure control; mA and/or kV adjustment per patient size (includes targeted exams where dose is matched to clinical indication); or iterative reconstruction. Contrast material: OMNI 350; Contrast volume: 95 ml; Contrast route: INTRAVENOUS (IV); COMPARISON: CR (CHEST, ) 10/08/2023 4:31 PM RADIATION DOSE METRICS: Total DLP (mGy-cm): 479.7 FINDINGS: Lungs: No focal consolidation. Multiple scattered calcified granulomas. No suspicious noncalcified pulmonary nodules. Pleural spaces: No pneumothorax or pleural effusion. Heart: No significant coronary calcifications. No pericardial effusion. Lymph nodes: No enlarged lymph nodes. Vasculature: No aortic aneurysm. Bones/joints: Multilevel degenerative spine changes including anterior wedge deformity at T7 and associated kyphosis. Soft tissues: No acute findings. CT/CT chest w con* [id number] IMPRESSION: No acute chest findings.
[2023-11-14] MEDS: iohexol 350 mg/mL 500 mL Btl (per mL) IV (17:03)
== END 2023-11-14 16:12 | disposition home or self-care (01) ==
LOC: RAD 16:12
PROVIDERS: PCP Nurse Practitioner Family; Visit Provider Nurse Practitioner Family
DX: U09.9 Post COVID-19 condition, unspecified (principal)
CPT/HCPCS: 71260; Q9967

== ENCOUNTER 2024-01-16 07:11 | Outpatient (CLI) | payer OTHER, SELFPAY ==
--- NOTE | 2024-01-16 07:15 | USCV_ITS ---
Servando Harkins Age: 58 Gender: M : 1965 Exam Date: 01/16/2024 07:21 Ordering Phys: Terry Choudhary MD Technologist: SWEETIE [place] [facility] [place]: SHORTNESS OF BREATH BP: 130 / 84 HR: 61 Rhythm: Sinus Technical Quality: Adequate MEASUREMENTS (Male / Female) Normal Values 2D ECHO LV Diastolic Diameter PLAX 4.5 cm 4.2 - 5.9 / 3.9 - 5.3 cm IVS Diastolic Thickness 1.2 cm 0.6 - 1.0 / 0.6 - 0.9 cm IVS Systolic Thickness 2.0 cm LVPW Diastolic Thickness 1.9 cm 0.6 - 1.0 / 0.6 - 0.9 cm LVPW Systolic Thickness 2.4 cm LVOT Diameter 2.0 cm LV Ejection Fraction 2D Teich 77.9 % LV Ejection Fraction MOD 2C 59.3 % LV Ejection Fraction 2C AL 60.4 % LA Diameter 3.3 cm RA Systolic Volume 4C AL 20.3 ml RA Systolic Volume 4C MOD 19.5 ml LA Sys Volume AL 27.6 cm cubed Aorta at Sinotubular Diameter 2.3 cm IVC Diameter 1.8 cm M-MODE LA Ao Ratio MM 1.3 AV Cusp Separation MM 2.1 cm DOPPLER AV Peak Velocity 137.0 cm/s LVOT Peak Velocity 96.0 cm/s AV Area Cont Eq vti 2.2 cm squared AV Area Cont Eq pk 2.2 cm squared MV Peak Velocity 300.0 cm/s MV Area PHT 4.0 cm squared Mitral E to A Ratio 1.3 TV Peak Velocity 206.5 cm/s TR Peak Velocity 237.0 cm/s TR Peak Gradient 22.5 mmHg TR Mean Velocity 194.0 cm/s TR Mean Gradient 16.3 mmHg TR Velocity Time Integral 80.1 cm TV Peak E Velocity 50.0 cm/s Right Atrial Pressure 3.0 mmHg Pulmonary Artery Systolic Pressu 25.5 mmHg PV Peak Velocity 106.0 cm/s RV Ejection Time 0.3 s FINDINGS Left Ventricle Left medical normal size. LV systolic function is normal with EF of 55 to 60%. No regional wall motion abnormalities are seen. Right Ventricle Normal in size and function Right Atrium Normal in size Left Atrium Normal in size Mitral Valve Structurally normal mitral valve. Mild mitral regurgitation. Aortic Valve Structurally normal aortic valve. No significant stenosis or regurgitation. Tricuspid Valve Mild tricuspid regurgitation. Pulmonary artery systolic pressure is normal. Pulmonic Valve Not well-visualized. Pericardium Normal Aorta Normal in size IVC Appears to be normal CONCLUSIONS LV systolic function is normal with EF of 55-60% Mild mitral regurgitation Mild tricuspid regurgitation No comparison studies are available. Joshua Wyatt MD (Electronically Signed) Final Date: 19 January 2024 22:02 S
== END 2024-01-16 07:12 | disposition home or self-care (01) ==
LOC: RAD 07:11
PROVIDERS: PCP Nurse Practitioner Family; Visit Provider Internal Medicine Pulmonary Disease
DX: R06.02 Shortness of breath (principal); R06.09 Other forms of dyspnea; U09.9 Post COVID-19 condition, unspecified
CPT/HCPCS: 93306

== ENCOUNTER 2024-01-24 11:43 | Outpatient (CLI) | payer OTHER, SELFPAY ==
--- NOTE | 2024-01-24 | ECG_ITS ---
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 Interpretive Statements NAME OF STUDY: TREADMILL STRESS TEST INDICATION: Chest Pain PROCEDURE: At the baseline, the patient's blood pressure was with a heart rate of. The baseline electrocardiogram showed normal sinus rhythm with some nonspecific T wave changes. The patient exercised for 6 minutes and 54 on a standard Sammy protocol. Patient attained a maximum heart rate of 157 beats per minute(98% of the maximum predicted heart rate) with a blood pressure at the peak exercise of 207/90 mm Hg. The EKG at the peak exercise revealed 1-[address] depressions in leads II, III, aVF, V5 and V6. Patient did not have any chest pain or any significant cardiac arrhythmias with the exercise During the recovery phase, there were no new changes. Blood pressure at the end of the recovery phase was 151/82 mm Hg with a heart rate of 97 per minute. CONCLUSION: 1. Abnormal EKG response to treadmill exercise suggesting inferolateral wall ischemia 2. No exercise-induced chest pain or cardiac arrhythmia 3. Fair exercise tolerance, attained a maximum of 10.2 METs 4. Hypertensive response to exercise Electronically Signed On 02-04-2024 23:01:05 CDT by Serge Pedroza M.D. [id number]
[2024-01-24 11:56] VITALS: BMI 31.6
[2024-01-24 13:43] VITALS: BP 145/84; PULSE 98
== END 2024-01-24 11:44 | disposition home or self-care (01) ==
LOC: CDL 11:44
PROVIDERS: PCP Nurse Practitioner Family; Visit Provider Internal Medicine Pulmonary Disease
DX: R07.9 Chest pain, unspecified (principal); R94.31 Abnormal electrocardiogram [ECG] [EKG]
CPT/HCPCS: 93017

== ENCOUNTER → 2024-02-12 11:33 | Outpatient (BNVA) | payer OTHER, SELFPAY | PROVIDERS: PCP Nurse Practitioner Family; Referring Provider Nurse Practitioner Family; Visit Provider Internal Medicine Cardiovascular Disease | DX: R06.02 Shortness of breath (principal); R94.39 Abnormal result of other cardiovascular function study; Z79.01 Long term (current) use of anticoagulants; I48.91 Unspecified atrial fibrillation | CPT/HCPCS: 36415; 80048; 81001; 83880; 85025; 85610 ==

== ENCOUNTER 2024-02-21 08:56 | Outpatient (CLI) | payer OTHER, SELFPAY ==
[2024-02-21 10:38] LABS: Erythrocyte Sedimentation Rate 4 mm/hr (0-10)
[2024-02-25 18:34] LABS: Alternaria Alternata (M6) Ige <0.10 kU/L; Alternaria Class 0; Bermuda Class 0; Bermuda Grass (G2) Ige <0.10 kU/L; Cat Dander (E1) Ige <0.10 kU/L; Cat Dander Class 0; Common Ragweed (Short) (W1) Ig <0.10 kU/L; D. Farinae Class 0; Dermatophagoides Class 0; Dermatophagoides Farinae (D2) <0.10 kU/L; Dermatophagoides Pteronyssinus <0.10 kU/L; Dog Dander (E5) Ige <0.10 kU/L; Dog Dander Class 0; Elm (T8) Ige <0.10 kU/L; Elm Class 0; English Plantain (W9) Ige <0.10 kU/L; English Plantain Class 0; House Dust (Greer) (H1) Ige <0.10 kU/L; House Dust (Hollister- Stier) <0.10 kU/L; House Dust Class 0; Immunoglobulin E 34 kU/L (<OR=114); Johnson Grass (G10) Ige <0.10 kU/L; Johnson Grass Cl 0; June Grass Class 0; June Grass(Kentucky Blue) (G8) <0.10 kU/L; Lamb'S Quarters (Goose Foot) <0.10 kU/L; Lamb'S Quarters Class 0; Maple (Box Elder) (T1) Ige <0.10 kU/L; Maple Class 0; Meadow Fescue (G4) Ige <0.10 kU/L; Meadow Fescue Class 0; Mucor Racemosus Class 0; Oak (T7) Ige <0.10 kU/L; Oak Class 0; Orchard Grass (Cocksfoot) (G3) <0.10 kU/L; Penicillium Class 0; Penicillium Notatum (M1) Ige <0.10 kU/L; Perennial Rye Grass (G5) Ige <0.10 kU/L; Perennial Rye Grass Class 0; Ragweeed Class 0; Rough Marsh Elder (W16) Ige <0.10 kU/L; Rough Marsh Elder Class 0; Sweet Vernal Class 0; Sweet Vernal Grass (G1) Ige <0.10 kU/L; Timothy Grass (G6) Ige <0.10 kU/L; Timothy Grass Class 0
[2024-02-27 20:05] LABS: Aspergillus Fumigatus, Igg Ab, 14.3 mg/L (<=102)
== END 2024-02-21 08:57 | disposition home or self-care (01) ==
LOC: LAB 08:57
PROVIDERS: PCP Nurse Practitioner Family; Visit Provider Internal Medicine Pulmonary Disease
DX: R06.02 Shortness of breath (principal); R06.09 Other forms of dyspnea; U09.9 Post COVID-19 condition, unspecified
CPT/HCPCS: 36415; 82785; 85651; 86003; 86140

== ENCOUNTER → 2024-03-12 11:54 | Outpatient (BNVA) | payer OTHER, SELFPAY | PROVIDERS: PCP Nurse Practitioner Family; Visit Provider Nurse Practitioner Family | DX: E78.2 Mixed hyperlipidemia (principal); E55.9 Vitamin D deficiency, unspecified; R53.83 Other fatigue; M25.50 Pain in unspecified joint; M79.10 Myalgia, unspecified site; F41.1 Generalized anxiety disorder; F43.0 Acute stress reaction; F32.4 Major depressive disorder, single episode, in partial remission; R41.89 Other symptoms and signs involving cognitive functions and awareness; R41.3 Other amnesia; T50.B95A Adverse effect of other viral vaccines, initial encounter; X58.XXXA Exposure to other specified factors, initial encounter | CPT/HCPCS: 80053; 80061; 82306; 82607; 82746; 84402; 84403; 84443; 85025; 86664; 86665 ==

== ENCOUNTER → 2024-06-11 14:58 | Outpatient (BNVA) | payer OTHER, SELFPAY | PROVIDERS: PCP Nurse Practitioner Family; Visit Provider Nurse Practitioner Family | DX: E78.2 Mixed hyperlipidemia (principal) | CPT/HCPCS: 80053; 85025 ==

== ENCOUNTER 2024-06-19 06:24 | Outpatient (CLI) | payer OTHER, SELFPAY ==
[2024-06-19] VITALS (17 sets, daily range): BP systolic 107–172; BP diastolic 75–101; PULSE 51–76; RESP 12–22; TEMP 36.5; O2SAT 95–98; BMI 30.5
--- NOTE | 2024-06-19 06:00 | XACV_ITS ---
Exam Room: 2 Ht: 173 cm Wt: 31 kg BSA: 1.18 m2 Gender: Male : 1965 Any Known Allergies: No known allergies Exam Priority: Routine Procedure(s): Procedure Description: Diagnostic procedure Procedure Description: Left Heart Catheterization Procedure Description: Left ventriculography Procedure Description: Coronary Angiography Diagnostic Cath Status: Elective Diagnostic Findings * The left main is a medium caliber vessel with no significant stenotic lesions. * The left artery descending artery is a medium caliber vessel which appears to wraparound the LV apex. Minimal intimal irregularities are noted but segment of the artery. * The left circumflex artery is a medium caliber nondominant vessel with no significant stenotic lesions. * The right coronary artery is a medium caliber dominant vessel with no significant stenotic lesions. Conclusions 1. 1. No significant obstructive coronary artery disease 2. Normal LV ejection fraction of 50% 3. LVEDP of 15 mmHg. Diagnostic RX Recommendation: medical therapy and/or counseling LV EDP: 15 mmHg Ventriculography Ejection Fraction: 50.0 % Left Ventriculography Findings: * The LV gram was performed in the WOO projection. The LV cavity appears to be normal size. The LVEDP was 15 mmHg. LV ejection fraction was 50%. No filling defects are noted. Pressures Phase:Rest AO : 106 / 68 ( 85 ) @ 8:44:00 AM 140 / 91 ( 112 ) @ 8:50:00 AM 23 / 13 ( 15 ) @ 8:50:00 AM LV : 126 / 5 / 25 @ 8:49:00 AM 136 / 16 / 35 @ 8:50:00 AM 136 / 16 / 35 @ 8:50:00 AM Valves Phase:DefaultPhase AV : 0.0 @ 7:54:51 AM AV Mean Gradient: 0.0 @ 7:54:51 AM Clinical Evaluation EBL: 5mL-10mL Procedural Details Procedure Consent Obtained. Pre-Procedure Time Out. Identified patient by full name and date of as verbalized by the patient/guarantor. Does the consent match the physician's order: Yes. Accurate & Complete Informed Consent: Yes. Inpatient/Outpatient History & Physical on Chart: Yes. If H&P is completed, is and addenduem needed: No. Visualize and Verify Site with Patient/Guarantor: N/A. Relevant Radiology Images available: Yes. The risks, benefits, and alternatives of sedation and/or procedure were discussed by physician. The patient agrees to continue. Procedure started. [facility] Clinical Fraility Score: 2: Well. 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 Chest Pain Symptom Assessment: Typical Angina Symptoms. Cardiovascular Instability: No. Correct patient, site and procedure confirmed by cath team. PERRLA. Strong, equal hand open source developer bilaterally. Lungs clear x 5 lobes. IV Site on Arrival: 20 gauge in the left anticubital. IV Fluids: 0.9% NaCl at KVO. 0 mL infused prior to label drier. Pre Procedural Pulses: bilateral dorsalis pedis was 3+. Pre Procedural Pulses: bilateral posterior tibial was 3+. Pre Procedural Pulses: bilateral radial was 3+. Oxygen started at 2liters/min via nasal canula. right groin was prepped with chloroprep then draped in the usual sterile fashion. right radial was prepped with chloroprep then draped in the usual sterile fashion. Physician notified. Baseline sample Acquired. HR: 64 BPM. Patient's family unavailable. Equipment: 6F - Radial. Cardiac Cath Pack. ACIST Manifold Kit Model BT 2000. Heparinized Saline (2 units/mL), 1000 mL bag. Physician arrived. Physician scrubbed in. Immediate Pre-Procedure Time Out. Correct Patient: Yes; Correct Procedure: Yes; Correct Site: Yes; Correct Patient Position: Yes; Correct Supplies: Yes; Dried Flammable Prep: Yes; Blood Products Available: N/A;. Lidocaine 1% infiltrated to the right radial. Arterial access obtained. A 5 british virgin islander Cuco catheter in over the exchange J wire. Multiple views taken of left coronary artery. Catheter removed over the exchange J wire. A 5 brit[place] virgin islander JR4 catheter in over the exchange J wire. Multiple views taken of right coronary artery. Catheter removed over the exchange J wire. A 5 brit[place] virgin islander Angled Pig catheter in over the exchange J wire. EDP Sample taken: LV 126/5,25; HR: 63 BPM; SpO2: 97%. LV gram performed in WOO @ 10 mL/second for a total of 30 mL. EDP Sample taken: LV 136/16,35; HR: 63 BPM; SpO2: 97%. Pullback taken: LV 136/16,35; AO 140/91(112); Mean: 0mmHg, Peak to Peak: 0mmHg, SEP: 5sec/min; HR: 65 BPM; SpO2: 97%. Catheter removed over the exchange J wire. Dr. Pedroza scrubbed out. A TR Band was successful obtaining hemostatsis at the Right Radial artery insertion site. Post Procedure: Pulses reassessed and unchanged. PERRLA. Strong, equal hand open source developer bilaterally. No VTE prophylaxis required. Medication's Wasted: Lidocaine 1% = 18 mL. Medication's Wasted: Nitro = 49.8 mg. Medication's Wasted: Heparin = 1000 units. Total IV fluids: 250 mL. Post-op diagnosis: Normal Coronaries. Complications: none. Estimated blood loss: 5mL-10mL. Responsiveness - Normal response to verbal stimuli; alert and oriented, PERRLA. Airway - Unaffected, no intervention required; spontaneous ventilation. Circulation: W/N/L, pulses unchanged. Nausea/Vomiting: No. Procedure completed. Patient transferred by bed to CPRU. Vital chart was stopped. Access Site Site: Right Radial artery Sheath Size: 6 Fr Hemostasis Method: TR Band Hemostasis Success: Successful Procedure Medications Start: 7:14 AM Stop: 7:14 AM Medication: Versed Amount: 1 mg Route: I.V. Start: 7:14 AM Stop: 7:14 AM Medication: Fentanyl Amount: 50 mcg Route: I.V. Start: 7:26 AM Stop: 7:26 AM Medication: Versed Amount: 1 mg Route: I.V. Start: 7:26 AM Stop: 7:26 AM Medication: Fentanyl Amount: 50 mcg Route: I.V. Start: 7:36 AM Stop: 7:36 AM Medication: Verapamil Amount: 5 mg Route: I.A. Start: 7:36 AM Stop: 7:36 AM Medication: Nitrogylcerin Amount: 200 mcg Route: I.A. Start: 7:37 AM Stop: 7:37 AM Medication: 0.9% Saline Amount: 250 ml Route: I.V. bolus Start: 7:38 AM Stop: 7:38 AM Medication: Heparin Amount: 5000 units Route: I.V. Start: 7:39 AM Stop: 7:39 AM Medication: Versed Amount: 1 mg Route: I.V. Start: 7:52 AM Stop: 7:52 AM Medication: Versed Amount: 1 mg Route: I.V. I, the attending physician, have reviewed and verified all procedure medications. Yes, all medications given per verbal order History/Risk Factors Hypertension: No Dyslipidemia: No Peripheral Arterial Disease (PAD): No Myocardial Infarction (HI): No Obesity: No Tobacco Use: Never Prior Interventions PCI: No CABG: No Valve Surgery: No Report Signatures Finalized by Dr Serge Pedroza MD [facility] on 06/22/2024 06:23 PM
[2024-06-19] MEDS: diphenhydrAMINE 50 mg Capsule PO (06:50)
[2024-06-19] MEDS: aspirin 325 mg Tablet PO (06:50)
--- NOTE | 2024-06-19 07:10 | W.PM.OPSUD ---
Surgery/Procedure H&P Update DATE OF PROCEDURE: June 19, 2024 DATE H&P PERFORMED: 06/02/24 H&P UPDATE INFORMATION: I have reviewed H&P completed within last 30 days, I have examined patient prior to procedure and No changes to prior documentation PREOP DIAGNOSIS: Possible ASHD PRIMARY INDICATION FOR PROCEDURE: Chest pain, shortness of breath and abnormal exercise stress test PLANNED PROCEDURE: Operation Date: 06/19/24 07:00 Proposed Procedures p Cardiac Catheterization(Left) - Serge Pedroza MD PATIENT REASSESSED PRIOR TO SEDATION, WITH NO CHANGE NOTED: Yes PHYSICAL EXAM: alert, oriented x 3, clear to auscultation bilaterally and regular rate & rhythm AIRWAY EVAL/ANESTHESIA PLAN: normal airway, see other exam findings, ASA III, Monitored Anesthesia, Local Anesthesia, Risks, benefits & alternatives of sedation and/or procedure discussed and Patient agrees to continue as planned
--- NOTE | 2024-06-19 08:00 | SUR.PHASEII ---
0.9% NS INFUSING AT 75 CC/HR POST CATH PER VERBAL ORDER FROM DR CASTELLANO UNTIL DISCHARGE.
--- NOTE | 2024-06-19 08:00 | SUR.PHASEII ---
POST CATH NOTE Recievied patient from lab support service tech. Status post cardiac cath via the right radial approach. TR band in place. Site is hemostatic with no s/s of active bleeding. Vitals and assessments per flowsheet. Call light within reach. Informed to call for needs. He understood well.
== END 2024-06-19 12:33 | disposition home or self-care (01) ==
PROVIDERS: PCP Nurse Practitioner Family; Visit Provider Internal Medicine Cardiovascular Disease
DX: R94.39 Abnormal result of other cardiovascular function study (principal); Z86.16 Personal history of COVID-19; K21.9 Gastro-esophageal reflux disease without esophagitis
CPT/HCPCS: 36415; 93458; 96374; 99152; 99153; C1769; C1887; C1894; J1644; J2250; J3010; J3490; J7030; Q0163; Q9967

== ENCOUNTER 2024-08-18 07:50 | Day surgery (SDC) | payer OTHER, SELFPAY ==
[2024-08-18 08:23] VITALS: BP 132/80; PULSE 63; RESP 18; TEMP 36.2; O2SAT 95; BMI 30.4
[2024-08-18] MEDS: sodium chloride 0.9% 1,000 ML 30 ML IV (08:31)
--- NOTE | 2024-08-18 09:11 | ANES.PREANE2 ---
Pre-Anesthetic Assessment Height/Weight: Height 1.73 m Weight 90.718 kg Temp Pulse Resp BP Pulse Ox O2 Del Method 97.2 F L 63 18 132/80 95 Room Air 08/18/24 08:23 08/18/24 08:23 08/18/24 08:23 08/18/24 08:23 08/18/24 08:23 08/18/24 08:23 Preop Diagnosis: screening Operation Date: 08/18/24 09:15 Proposed Procedures p Colonoscopy 53767, G0121, Z12.11(Not Applicable) - Jeferson Francis MD Familial anesthetic complications: none Was Beta Abdirizak taken within 24 hours: N/A Was Clonidine taken within 24 hours: N/A Last intake: Intake Last Liquid Date 08/17/24 Last Liquid Time 20:00 Last Solid Date 08/17/24 Last Solid Time 08:00 Social Tobacco and No alcohol chews Exam alert, oriented x 3, clear to auscultation bilaterally and regular rate & rhythm Airway Submandibular: within normal limits Cervical ROM: within normal limits Mallampati: Class II Dentition: full History/ROS No significant history except as noted and No significant complaints Pulmonary None reported CV/HEM None reported None reported Hepatic None reported GI None reported Metabolic None reported Musc/skel None reported Neuropsych None reported Anesthetic Plan ASA status: 2 Risk of > 500 ml blood loss (7ml/kg in children): No Medications/Allergies Home Medications Medication Instructions Recorded Confirmed Last Taken Type aspirin 81 mg chewable tablet 81 mg PO DAILY #30 tabs 06/19/24 08/13/24 08/16/24 Rx (Aspirin Childrens) Allergies Allergy/AdvReac Type Severity Reaction Status Date / Time No Known Allergies Allergy Verified 08/13/24 09:37 Current Medications Generic Name Dose Route Start Last Admin Trade Name Freq PRN Reason Stop Dose Admin Sodium Chloride 1,000 mls @ 30 mls/hr 08/18/24 08:15 08/18/24 08:31 Sodium Chloride 0.9% IV 08/19/24 08:14 30 mls/hr .Q24H JOSEMANUEL Administration PFSH Anesthesia Medical History GERD (gastroesophageal reflux disease) Surgical History Hx of tonsillectomy Family History Other No pertinent family history Social History Smoking and tobacco/nicotine status: never used tobacco/nicotine Second hand smoke exposure: No Alcohol intake: never Substance/Drug Use: never Lives independently: Yes Marital status: service: No Current occupational status: employed Current gender identity: Male Special nikolay needs: No Agree to transfusion: Yes Data Anesthesia Cardiac Studies: Echocardiogram 01/16/24
--- NOTE | 2024-08-18 09:24 | W.PM.OPSFHP ---
Same Day Surgery H&P Indication for Procedure/HPI DATE OF PROCEDURE: August 18, 2024 CHIEF COMPLAINT/INDICATIONFOR SURGICAL PROCEDURE: screening colonoscopy PREOP DIAGNOSIS: screening PLANNED PROCEDURE: Operation Date: 08/18/24 09:15 Proposed Procedures p Colonoscopy 90532, G0121, Z12.11(Not Applicable) - Jeferson Francis MD Medications/Allergies* Allergies/Adverse Reactions Allergy/AdvReac Type Severity Reaction Status Date / Time No Known Allergies Allergy Verified 08/13/24 09:37 Current Medications: Generic Name Dose Route Start Last Admin Trade Name Freq PRN Reason Stop Dose Admin Sodium Chloride 1,000 mls @ 30 mls/hr 08/18/24 08:15 08/18/24 08:31 Sodium Chloride 0.9% IV 08/19/24 08:14 30 mls/hr .Q24H JOSEMANUEL Administration Pertinent History/Comorbid Conditions* Medical History (Updated 05/02/24 @ 14:27 by Estella Roblero NP) GERD (gastroesophageal reflux disease) Surgical History (Updated 06/30/20 @ 07:51 by NINA Funes) Hx of tonsillectomy Family History (Updated 04/05/20 @ 15:45 by Anna Marie Almendarez LPN, RT) No pertinent family history Social History Smoking and tobacco/nicotine status: never used tobacco/nicotine Second hand smoke exposure: No Alcohol intake: never Substance/Drug Use: never Lives independently: Yes Marital status: service: No Current occupational status: employed Current gender identity: Male Special nikolay needs: No Agree to transfusion: Yes Pertinent Exam Findings alert, oriented x 3, clear to auscultation bilaterally, regular rate & rhythm and procedure specific exam findings Abdomen soft, nt, nd Recommendations Surgery/Procedure today Coding Level of Care Code Acute Code for Chg Fwd
[2024-08-18 09:49] VITALS: BP 104/67; PULSE 64; RESP 18; TEMP 36.4; O2SAT 93
[2024-08-18 09:59] VITALS: BP 109/68; PULSE 63; RESP 18; O2SAT 96
[2024-08-18 10:09] VITALS: BP 127/89; PULSE 60; RESP 18; O2SAT 97
--- NOTE | 2024-08-18 10:17 | ANE.PACU2 ---
Inpatient post-anesthesia follow up: Airway intact: Yes Vital signs: Temperature 97.6 F Pulse Rate 60 Respiratory Rate 18 Blood Pressure 127/89 Pulse Oximetry 97 Oxygen Delivery Me thod Room Air Oxygen Flow Rate Fraction of Inspir ed Oxygen Hydration adequate: Yes Nausea and vomiting: No Pain level: 1 Mental status: Baseline
== END 2024-08-18 10:17 | disposition home or self-care (01) ==
PROVIDERS: PCP Family Medicine; Visit Provider Student in an Organized Health Care Education/Training Program
PROC: 0DJD8ZZ Inspection of Lower Intestinal Tract, Via Natural or Artificial Opening Endoscopic (ICD-10-PCS; CPT 45378; principal; 2024-08-18 09:15)
DX: Z12.11 Encounter for screening for malignant neoplasm of colon (principal); K21.9 Gastro-esophageal reflux disease without esophagitis; K64.4 Residual hemorrhoidal skin tags; K57.30 Diverticulosis of large intestine without perforation or abscess without bleeding
CPT/HCPCS: 45378; J2704; J7030

== ENCOUNTER 2024-09-12 12:08 | Outpatient (CLI) | payer OTHER, SELFPAY ==
[2024-09-12 14:20] LABS: Basophils % 0.6 %; Eosinophils # 0.1 10^3/uL (0.0-0.8); Eosinophils % 1.7 %; Hematocrit 48.7 % (37-53); Lymphocytes % 21.5 %; Mean Corpuscular HGB Conc 32.6 g/dL (30-55); Mean Corpuscular Hemoglobin 30.8 pg (27-33); Mean Corpuscular Volume 94.4 fl (82-101); Mean Platelet Volume 11.6 fL (7.4-10.4); Monocytes # 0.4 10^3/uL (0.2-0.9); Monocytes % 9.2 %; Neutrophils % 66.6 %; Nucleated Red Blood Cells % 0 %; Platelet Count 171 10^3/cmm (157-399); Red Blood Count 5.16 10^6/uL (3.85-5.65); Red Cell Distribution Width 12.9 % (12.1-15.1)
[2024-09-12 14:33] LABS: Estmated Average Glucose 91; Hemoglobin A1C 4.8 % (4.0-6.0)
[2024-09-12 14:59] LABS: Alanine Aminotransferase 31 U/L (0-41); Albumin Level 4.7 g/dL (3.5-5.2); Alkaline Phosphatase 76 U/L (40-130); Anion Gap 14.9 (5-19); Aspartate Amino Transferase 21 U/L (0-40); Blood Urea Nitrogen 11 mg/dL (8-23); Calcium 9.6 mg/dL (8.5-10.5); Carbon Dioxide 26 mmol/L (22-29); Chloride 98 mmol/L (98-107); Chol HDL Ratio 5.03 mg/dL (1.0-5.00); Cholesterol 191 mg/dL (0-200); Cortisol Random 5.73 ug/dL (2.47-19.5); Free T4 Free Thyroxine 1.03 ng/dL (0.82-1.77); Globulin 2.4 g/dL (1.3-4.6); Glomerular Filtration Rate 98.3 mL/min (90-130); Glucose 109 mg/dL (65-115); HDL Cholesterol 38 mg/dL (60-100); LDL Cholesterol Calculated 115 mg/dL (50-129); LDL HDL Ratio 3.03 RATIO (0.00-3.22); Osmolality Calculated 280 mOsm/kg (285-295); Potassium 3.9 mmol/L (3.5-5.1); Sodium 135 mmol/L (136-145); T3 Free 3.5 PG/ML (2.0-4.4); Total Bilirubin 0.5 mg/dL (0.15-1.2); Total Protein 7.1 g/dL (6.6-8.7); Triglycerides 191 mg/dL (0-150)
[2024-09-12 15:25] LABS: Estradiol 55.9 pg/mL (7.63-42.6); Ferritin 112 ng/mL (30-400); Follicle Stimulating Hormone 0.4 mIU/mL (1.5-12.4); Luteinizing Hormone < 1.0 mIU/mL (1.7-8.6); Prolactin 17.16 ng/mL (4.0-15.2)
[2024-09-13 05:14] LABS: Dehydroepiandrosterone Sulfate 149 mcg/dL (20-217)
[2024-09-13 05:59] LABS: Sex Hormone Binding Globulin 21 nmol/L (22-77)
[2024-09-13 06:44] LABS: T4 Total 7.8 mcg/dL (4.9-10.5)
[2024-09-13 09:06] LABS: Insulin ( Reference Lab Test) 12.6 uIU/mL
[2024-09-13 10:21] LABS: T3 Total 140 ng/dL (76-181)
[2024-09-15 15:39] LABS: Treponema pallidum AB Immuno NEGATIVE (NEGATIVE)
[2024-09-15 16:16] LABS: Thyroglobulin AB <1 IU/mL (< or = 1)
[2024-09-17 16:15] LABS: T3 Reverse LC/MS/MS 16 ng/dL (8-25)
== END 2024-09-12 12:09 | disposition home or self-care (01) ==
LOC: LAB 12:09
PROVIDERS: PCP Family Medicine; Visit Provider Family Medicine
DX: D72.810 Lymphocytopenia (principal); Z13.850 Encounter for screening for traumatic brain injury; E78.5 Hyperlipidemia, unspecified; E27.0 Other adrenocortical overactivity; E10.9 Type 1 diabetes mellitus without complications; E05.90 Thyrotoxicosis, unspecified without thyrotoxic crisis or storm; E06.3 Autoimmune thyroiditis; E55.9 Vitamin D deficiency, unspecified; E27.8 Other specified disorders of adrenal gland; E34.9 Endocrine disorder, unspecified; E61.1 Iron deficiency; E34.32 Genetic causes of short stature; Z12.5 Encounter for screening for malignant neoplasm of prostate
CPT/HCPCS: 36415; 80053; 80061; 82533; 82627; 82642; 82670; 82728; 83001; 83002; 83036; 83525; 84144; 84146; 84153; 84270; 84305; 84403; 84436; 84439; 84443; 84480; 84481; 84482; 85025; 86780; 86800